=== PATIENT | male | born 1950 | race Caucasian/White ===

== ENCOUNTER 2019-07-12 10:11 | Emergency (ER) | payer MEDICARE ==
[~2019-07-12] VITALS: Ht 172.7 cm; Wt 90.9 kg
[2019-07-12 10:17] VITALS: BP 152/65
--- NOTE | 2019-07-12 11:00 | NUR ---
PT HERE FOR WOUND ON LLE, PT STATES HE HAS HAD FOR 4 MONTHS AND IT ISNT HEALING. ERPROVIDER IN TO EVAL PT, PT BECAME VERY AGITATED DEMANDING THAT ERPROVIDER CAUTERIZE THE WOUND, PT WITH NO ACTIVE BLEEDING AND CAUTERY IS NOT INDICATED PER PROVIDER. ERMD IN TO EVAL PT. PLAN FOR DC AND OUTPT WOUND CLINIC REFERRAL
--- NOTE | 2019-07-12 11:33 | NUR ---
PT DISCHARGED WITH WOUND REFERRAL. NEW DRESSING APPLIED BY ER EMT. PT WITH ALL BELONGINGS ON DC, ESCORTED TO DC DESK IN WHEELCHAIR, STABLE ON DC DAY
== END 2019-07-12 11:42 | disposition home or self-care (01) ==
LOC: ED 11:29
DX: S81.812A Laceration without foreign body, left lower leg, initial encounter (principal); W45.8XXA Other foreign body or object entering through skin, initial encounter; Y93.89 Activity, other specified; Y92.009 Unspecified place in unspecified non-institutional (private) residence as the place of occurrence of the external cause; Y99.8 Other external cause status
CPT/HCPCS: 99281

== ENCOUNTER → 2020-06-11 | Outpatient (CLI) | payer MEDICARE | END | disposition home or self-care (01) | LOC: STAR 12:21 | PROVIDERS: ATTEND Anesthesiology | DX: Z01.818 Encounter for other preprocedural examination (principal); Z01.89 Encounter for other specified special examinations; Z01.812 Encounter for preprocedural laboratory examination; R79.1 Abnormal coagulation profile | CPT/HCPCS: 93005 ==